=== PATIENT | female | born 1995 | race African-American/Black ===

== ENCOUNTER 2018-10-17 22:38 | Emergency (ER) | payer MEDICAID ==
[~2018-10-17] VITALS: Ht 172.7 cm; Wt 66.2 kg
[2018-10-17 22:40] VITALS: BP_SYST 117
--- NOTE | 2018-10-17 22:50 | NUR ---
Patient triaged and placed in waiting room. VSS and patient appears in no acute distress at this time. Accompanied by friend, awaiting available bed, and MD notified of need for MSE.
--- NOTE | 2018-10-18 00:10 | NUR ---
Patient to ER bed 5 for evaluation.
--- NOTE | 2018-10-18 00:15 | NUR ---
Patient to ER via triage for evaluation of vomiting with abdominal cramping, patient reports that she is about 7 weeks . Patient is awake, alert and oriented in no acute distress, vital signs stable, respirations even and unlabored, skin warm and dry to touch. Patient able to ambulate without difficulty with slow, steady gait. Awaiting evaluation by ER MD, will continue to observe and assess. Friend at patient's bedside.
--- NOTE | 2018-10-18 00:20 | NUR ---
Patient unable to provide urine sample at this time.
--- NOTE | 2018-10-18 01:15 | NUR ---
ER at bedside examining patient.
[2018-10-18] MEDS: ONDANSETRON HCL 4 MG/2 ML VIAL IVP ONE (01:58)
[2018-10-18] MEDS: NACL 0.9% 1,000 ML IV ONE (01:59)
--- NOTE | 2018-10-18 02:15 | NUR ---
Patient resting quietly in no acute distress, respirations even and unlabored, IV fluids infusing without difficulty, no redness or swelling noted at site. No adverse reaction noted to medication.
[2018-10-18 02:17] LABS: BASOPHILS % (AUTO) 0.3 % (0.0-2.0); EOSINOPHILS # (AUTO) 0.2 K/uL (0.0-0.4); EOSINOPHILS % (AUTO) 1.2 % (0.0-4.0); HEMATOCRIT 35.8 % (36-48); HEMOGLOBIN 11.8 g/dL (12.0-16.0); LYMPHOCYTES # (AUTO) 1.7 K/uL (1.0-5.5); LYMPHOCYTES % (AUTO) 12.8 % (20.5-51.5); MEAN CORPUSCULAR HEMOGLOBIN 31 pg (27-31); MEAN CORPUSCULAR HGB CONC 33 % (32-36); MEAN CORPUSCULAR VOLUME 92 fL (79.0-98.0); MONOCYTES # (AUTO) 0.7 K/uL (0.0-1.0); NEUTROPHILS # (AUTO) 10.7 K/uL (1.8-7.7); NEUTROPHILS % (AUTO) 80.7 % (40.0-70.0); PLATELET COUNT (AUTO) 248 K/uL (130-430); RED BLOOD CELL COUNT(AUTO) 3.89 MIL/uL (4.2-6.2); RED CELL DISTRIBUTION WIDTH 13.5 % (9.0-15.0); WHITE BLOOD COUNT (AUTO) 13.2 K/uL (4.8-10.8)
[2018-10-18 02:21] LABS: BILIRUBIN,URINE NEGATIVE (NEGATIVE); BLOOD, URINE NEGATIVE (NEGATIVE); CLARITY/URINE HAZY (CLEAR); COLOR,URINE YELLOW (YELLOW); GLUCOSE,URINE NEGATIVE (NEGATIVE); KETONES,URINE TRACE (NEGATIVE); LEUKOCYTE ESTERASE ,URINE NEGATIVE (NEGATIVE); NITRITE, URINE NEGATIVE (NEGATIVE); PH,URINE 8.5 (5.0-8.0); PROTEIN URINE TRACE (NEGATIVE); UROBILINOGEN,URINE 0.2 (0.2-1.0)
[2018-10-18 02:28] LABS: CREATININE 0.69 mg/dL (0.55-1.30); POTASSIUM 3.3 mmol/L (3.5-5.1)
[2018-10-18 02:39] LABS: ALBUMIN 3.6 g/dL (3.4-4.8); TOTAL BILIRUBIN 0.4 mg/dL (0.0-1.0)
--- NOTE | 2018-10-18 02:50 | NUR ---
Patient to ultrasound in stable condition via wheelchair.
--- NOTE | 2018-10-18 03:05 | NUR ---
Patient returned from ultrasound in stable condition via wheelchair.
[2018-10-18 04:50] VITALS: BP_SYST 120
--- NOTE | 2018-10-18 04:50 | NUR ---
Patient given written and verbal discharge instructions and verbalizes understanding. ER MD Dr. Naranjo discussed with patient the results and treatment provided. Patient in stable condition. ID arm band removed. IV catheter removed intact and dressing applied, no active bleeding. Rx of zofran given. Patient educated on pain management and to follow up with PMD. Pain Scale 0/10. Opportunity for questions provided and answered. Medication side effect fact sheet provided.
[2018-10-18] MEDS ORDERED: IPRATROPIUM/ALBUTEROL SULFATE 3 ML AMPUL.NEB (DUONEB) ONE (05:54)
== END 2018-10-18 04:50 | disposition home or self-care (01) ==
LOC: SED 22:38
DX: O21.0 Mild hyperemesis gravidarum (principal); J45.909 Unspecified asthma, uncomplicated; Z91.010 Allergy to peanuts; Z3A.01 Less than 8 weeks gestation of pregnancy
CPT/HCPCS: 36415; 76801; 80053; 81003; 81025; 83690; 85025; 96361; 96374; 99284; J2405; J7030 ×2; J7620